=== PATIENT | male | born 1995 | race Caucasian/White ===

== ENCOUNTER 2016-12-30 16:34 | Emergency (ER) | payer MEDICAID ==
[2016-12-30 16:55] VITALS: TEMP 102.4
[2016-12-30] MEDS ORDERED: IBUPROFEN 600 MG TAB PO STA (18:28)
[2016-12-30] MEDS ORDERED: IPRATROPIUM-ALBUTEROL 3 ML NEB INHALATION STA (18:28)
[2016-12-30] MEDS ORDERED: SODIUM CHLORIDE 0.9% 1,000 ML IV STA (18:28)
[2016-12-30] MEDS ORDERED: ONDANSETRON 4 MG/2 ML VIAL IVP STA (18:28)
[2016-12-30] MEDS ORDERED: ACETAMINOPHEN TAB 500 MG TAB PO STA (18:29)
--- NOTE | 2016-12-30 18:38 | ED ---
Nausea/Vomiting/Diarrhea HPI - General Chief complaint: Nausea/Vomiting/Diarrhea Stated complaint: Abd Pain Time Seen by Provider: 12/30/16 18:24 Source: patient, RN notes reviewed Mode of arrival: ambulatory Limitations: no limitations - History of Present Illness Initial comments: 21 yo male presents to the ER with cc of abdominal pain, fever, cough, nausea and vomiting. Patient has been sick since . Patient went to urgent care was started on antibiotics for this. He started to develop the abdominal pain and nausea vomiting basically were concerned. Patient states he had a cough cold runny nose with this. Patient missed or sore throat. He denies any ear pain or neck pain. He states he just does not seem to be getting better so he was concerned.Patient denies any recent shortness of breath, chest pain, back pain, numbness or tingling, dysuria or hematuria, constipation or diarrhea , headaches or visual changes, or any other current symptoms. - Related Data Home Medications Medication Instructions Recorded Confirmed Albuterol Sulfate [Proair Hfa] 2 puff INHALATION RT-Q4H PRN 12/30/16 12/30/16 Azithromycin [Zithromax Z-pack] See Taper PO DAILY 12/30/16 12/30/16 predniSONE See Taper PO DAILY 12/30/16 12/30/16 Previous Rx's Medication Instructions Recorded Albuterol Inhaler [Ventolin Hfa 1 - 2 puff INHALATION Q4-6H PRN #1 12/30/16 Inhaler] inhaler Levofloxacin [Levaquin] 750 mg PO DAILY #7 tab 12/30/16 Allergies Allergy/AdvReac Type Severity Reaction Status Date / Time No Known Allergies Allergy Verified 12/30/16 18:29 Review of Systems ROS Statement: Those systems with pertinent positive or pertinent negative responses have been documented in the HPI. ROS Other: All systems not noted in ROS Statement are negative. Past Medical History Past Medical History: No Reported History History of Any Multi-Drug Resistant Organisms: None Reported Past Surgical History: Tonsillectomy Past Psychological History: No Psychological Hx Reported Smoking Status: Never smoker Past Alcohol Use History: Occasional Past Drug Use History: None Reported General Exam - General Exam Comments Initial Comments: General exam: Alert, active, comfortable in no apparent distress Head: Normocephalic Eyes: Normal reaction of pupils, equal size, normal range of extraocular motion Ears: normal external ear canals, pink tympanic membranes with normal cone of light Nose: clear with pink turbinates Throat: no erythema or exudates with normal sized tonsils Neck: no masses, no nuchal rigidity Chest: no chest wall deformity Lungs: equal air entry with no crackles or wheeze CVS: S1 and S2 normal with no audible mumurs, regular rhythm Abdomen: no hepatosplenomegaly, normal bowel sounds, no guarding or rigidity Spine: no scoliosis or deformity Skin: no rashes Neurological: No focal deficits, tone is normal in all 4 extremities Limitations: no limitations Course Vital Signs 12/30/16 12/30/16 12/30/16 16:52 19:20 19:24 Temperature 102.4 F H Pulse Rate 114 H 78 84 Respiratory 20 Rate Blood Pressure 135/76 O2 Sat by Pulse 94 L Oximetry Medical Decision Making - Medical Decision Making 21-year-old male presents to the emergency department with a chief complaint of fever and abdominal pain nausea vomiting. This time the patient appears in right lower lobe pneumonia. This time we discussed using the new antibiotic as prescribed as well as the inhaler. We discussed return parameters all patient' s questions. they're in agreement with plan. They will be discharged. - Lab Data Result diagrams: 12/30/16 18:53 12/30/16 18:53 Lab Results 12/30/16 12/30/16 Range/Units 18:53 18:53 WBC 6.3 (3.8-10.6) k/uL RBC 4.87 (4.30-5.90) m/uL Hgb 13.6 (13.0-17.5) gm/dL Hct 41.7 (39.0-53.0) % MCV 85.5 (80.0-100.0) fL MCH 27.9 (25.0-35.0) pg MCHC 32.7 (31.0-37.0) g/dL RDW 13.6 (11.5-15.5) % Plt Count 197 (150-450) k/uL Neutrophils % 89 % Lymphocytes % 5 % Monocytes % 5 % Eosinophils % 0 % Basophils % 0 % Neutrophils # 5.6 (1.3-7.7) k/uL Lymphocytes # 0.3 L (1.0-4.8) k/uL Monocytes # 0.3 (0-1.0) k/uL Eosinophils # 0.0 (0-0.7) k/uL Basophils # 0.0 (0-0.2) k/uL Sodium 134 L (137-145) mmol/L Potassium 3.8 (3.5-5.1) mmol/L Chloride 97 L (98-107) mmol/L Carbon Dioxide 24 (22-30) mmol/L Anion Gap 13 mmol/L BUN 12 (9-20) mg/dL Creatinine 0.89 (0.66-1.25) mg/dL Est GFR (MDRD) Af Amer >60 (>60 ml/min/1.73 sqM) Est GFR (MDRD) Non-Af >60 (>60 ml/min/1.73 sqM) Glucose 94 (74-99) mg/dL Calcium 8.4 (8.4-10.2) mg/dL Total Bilirubin 0.6 (0.2-1.3) mg/dL AST 33 (17-59) U/L ALT 40 (21-72) U/L Alkaline Phosphatase 66 (38-126) U/L Total Protein 6.9 (6.3-8.2) g/dL Albumin 3.9 (3.5-5.0) g/dL Amylase 52 (30-110) U/L Lipase 47 (23-300) U/L - Radiology Data Radiology results: report reviewed, image reviewed Disposition Clinical Impression: Right lower lobe pneumonia Disposition: HOME SELF-CARE Condition: Stable Instructions: Bacterial Pneumonia (ED) Additional Instructions: Please use medication as discussed. Please follow up with family doctor if symptoms have not improved over the next two days. Please return to the emergency room if your symptoms increase or worsen or for any other concerns. Prescriptions: Albuterol Inhaler [Ventolin Hfa Inhaler] 1 - 2 puff INHALATION Q4-6H PRN #1 inhaler PRN Reason: Cough Levofloxacin [Levaquin] 750 mg PO DAILY #7 tab Referrals: Marvin Norman DO [Primary Care Provider] - 1-2 days Time of Disposition: 19:49
[2016-12-30 19:15] LABS: Basophils % (A) 0 %; CH 28.2; CHCM 33.1; Eosinophils % (A) 0 %; HCT 41.7 % (39.0-53.0); HGB 13.6 gm/dL (13.0-17.5); Luc # (Auto) 0.07; Luc % (Auto) 1; Lymphocytes # (A) 0.3 k/uL (1.0-4.8); Lymphocytes % (A) 5 %; MCH 27.9 pg (25.0-35.0); MCHC 32.7 g/dL (31.0-37.0); MCV 85.5 fL (80.0-100.0); Mean Platelet Volume 6.9; Monocytes # (A) 0.3 k/uL (0-1.0); Monocytes % (A) 5 %; Neutrophils # (A) 5.6 k/uL (1.3-7.7); Neutrophils % (A) 89 %; RBC 4.87 m/uL (4.30-5.90); RDW 13.6 % (11.5-15.5); WBC 6.3 k/uL (3.8-10.6); WBC (Perox) 6.37
--- NOTE | 2016-12-30 19:19 | XR ---
EXAMINATION TYPE: XR chest 2V DATE OF EXAM: 12/30/2016 7:06 PM COMPARISON: NONE HISTORY: Cough TECHNIQUE: Frontal and lateral views of the chest are obtained. FINDINGS: Heart and mediastinum are normal. There is a 5 cm rounded area of consolidation in the rig ht lower lobe. The other lung costello are clear. There are no hilar masses. There is no pleural effusi on. Bony thorax is intact. IMPRESSION: Consolidation in the right lower lobe consistent with bronchopneumonia.
[2016-12-30 19:23] LABS: ALT 40 U/L (21-72); AST 33 U/L (17-59); Alkaline Phosphatase 66 U/L (38-126); Amylase 52 U/L (30-110); Anion Gap 13 mmol/L; Blood Urea Nitrogen 12 mg/dL (9-20); Calcium 8.4 mg/dL (8.4-10.2); Carbon Dioxide 24 mmol/L (22-30); Chloride 97 mmol/L (98-107); Glucose 94 mg/dL (74-99); Non-African American GFR(MDRD) >60 (>60 ml/min/1.73 sqM); Potassium 3.8 mmol/L (3.5-5.1); Sodium 134 mmol/L (137-145); Total Bilirubin 0.6 mg/dL (0.2-1.3); Total Protein 6.9 g/dL (6.3-8.2)
[2016-12-30 19:59] VITALS: BP 123/61; PULSE 101; RESP 16
== END 2016-12-30 20:07 | disposition home or self-care (01) ==
LOC: EC 16:34
DX: J18.9 Pneumonia, unspecified organism (principal); Z79.52 Long term (current) use of systemic steroids
CPT/HCPCS: 99284; 96374; 96361; 36415; 94640; 80053; 82150; 83605; 83690; 85025; 87040; 71020; J2405

== ENCOUNTER 2017-01-01 14:58 | Inpatient (IN) | payer MEDICAID ==
[2017-01-01] MEDS ORDERED: IPRATROPIUM-ALBUTEROL 3 ML NEB INHALATION STA (15:28)
[2017-01-01] MEDS ORDERED: ACETAMINOPHEN IV (For NPO) 1,000 MG in EMPTY BAG 1 BAG IVPB STA (15:28)
[2017-01-01] MEDS ORDERED: KETOROLAC 30 MG/ML 1 ML VIAL IVP STA (15:28)
[2017-01-01] MEDS ORDERED: LEVOFLOXACIN 750MG-D5W PMX 750 MG in DEXTROSE/WATER 1 150ML.BAG IVPB STA (15:28)
[2017-01-01] MEDS ORDERED: PIPERACILLIN-TAZOBACTAM 3.375 GM in DEXTROSE/WATER 1 50ML.BAG IVPB STA (15:28)
[2017-01-01] MEDS ORDERED: SODIUM CHLORIDE 0.9% 2,000 ML IV STA (15:29)
[2017-01-01] MEDS ORDERED: SODIUM CHLORIDE 0.9% 1,000 ML IV STA ×2 (15:29→16:50)
--- NOTE | 2017-01-01 15:52 | ED ---
General Adult HPI - General Chief complaint: Shortness of Breath Stated complaint: Cough/SOB Time Seen by Provider: 01/01/17 15:12 Source: patient, RN notes reviewed, old records reviewed Mode of arrival: ambulatory Limitations: no limitations - History of Present Illness Initial comments: This is a 21-year-old male to the ER for evaluation of fevers, shortness of breath cough and congestion. Patient has no specific medical history takes no medications no fevers. Family history no known sick contacts. Patient's eyes for stable pneumonia, initially diagnosed here in the emergency room, getting progressively worse. He also saw 7 doctor 2 days ago and is also continue to get worse and that basically taking all medications as prescribed, feeling weak , diaphoretic and sweating, no specific nausea vomiting or chest pain. Mild shortness of breath - Related Data Previous Rx's Medication Instructions Recorded Levofloxacin [Levaquin] 750 mg PO DAILY #7 tab 12/30/16 Albuterol Inhaler [Ventolin Hfa 1 - 2 puff INHALATION QID #0 01/04/17 Inhaler] Budesonide-Formot 160-4.5 Mcg 2 puff INHALATION BID #1 inhaler 01/04/17 [Symbicort 160-4.5 Mcg Inhaler] predniSONE 10 mg PO DIRECTED #30 tab 01/04/17 Fluconazole [Diflucan] 100 mg PO DAILY #7 tab 01/05/17 Allergies Allergy/AdvReac Type Severity Reaction Status Date / Time No Known Allergies Allergy Verified 01/01/17 15:53 Review of Systems ROS Statement: Those systems with pertinent positive or pertinent negative responses have been documented in the HPI. ROS Other: All systems not noted in ROS Statement are negative. Past Medical History Past Medical History: No Reported History History of Any Multi-Drug Resistant Organisms: None Reported Past Surgical History: Tonsillectomy Past Psychological History: No Psychological Hx Reported Smoking Status: Never smoker Past Alcohol Use History: Occasional Past Drug Use History: None Reported - Past Family History Mother Family Medical History: No Reported History Father Family Medical History: Diabetes Mellitus General Exam Limitations: no limitations General appearance: alert, in no apparent distress Head exam: Present: atraumatic, normocephalic, normal inspection Eye exam: Present: normal appearance, PERRL, EOMI. Absent: scleral icterus, conjunctival injection, periorbital swelling ENT exam: Present: normal exam, mucous membranes moist Neck exam: Present: normal inspection. Absent: tenderness, meningismus, lymphadenopathy Respiratory exam: Present: normal lung sounds bilaterally. Absent: respiratory distress, wheezes, rales, rhonchi, stridor Cardiovascular Exam: Present: regular rate, normal rhythm, normal heart sounds. Absent: systolic murmur, diastolic murmur, rubs, gallop, clicks GI/Abdominal exam: Present: soft, normal bowel sounds. Absent: distended, tenderness, guarding, rebound, rigid Extremities exam: Present: normal inspection, full ROM, normal capillary refill. Absent: tenderness, pedal edema, joint swelling, calf tenderness Back exam: Present: normal inspection Neurological exam: Present: alert, oriented X3, CN II-XII intact Psychiatric exam: Present: normal affect, normal mood Skin exam: Present: warm, dry, intact, normal color. Absent: rash Course Vital Signs 01/01/17 01/01/17 01/01/17 14:59 15:54 16:08 Temperature 98.7 F Pulse Rate 95 96 Respiratory 18 24 Rate Blood Pressure 126/58 O2 Sat by Pulse 97 Oximetry 01/01/17 16:13 Temperature Pulse Rate 96 Respiratory Rate Blood Pressure O2 Sat by Pulse Oximetry Medical Decision Making - Medical Decision Making 21 no the ER for evaluation pneumonia with failed outpatient treatment, patient will be increased and broad-spectrum antibiotics, admitted to the hospital for both cardio pulmonary monitoring as well as organic status. Patient be admitted with IV fluid and IV antibiotics, - Lab Data Result diagrams: 01/05/17 06:27 01/05/17 06:27 Lab Results 01/01/17 01/01/17 01/01/17 Range/Units 15:50 15:50 15:50 WBC 11.5 H (3.8-10.6) k/uL RBC 4.56 (4.30-5.90) m/uL Hgb 12.9 L (13.0-17.5) gm/dL Hct 38.4 L (39.0-53.0) % MCV 84.3 (80.0-100.0) fL MCH 28.2 (25.0-35.0) pg MCHC 33.5 (31.0-37.0) g/dL RDW 13.6 (11.5-15.5) % Plt Count 167 (150-450) k/uL Neutrophils % 92 % Lymphocytes % 3 % Monocytes % 3 % Eosinophils % 0 % Basophils % 0 % Neutrophils # 10.6 H (1.3-7.7) k/uL Lymphocytes # 0.3 L (1.0-4.8) k/uL Monocytes # 0.3 (0-1.0) k/uL Eosinophils # 0.0 (0-0.7) k/uL Basophils # 0.0 (0-0.2) k/uL PT (9.0-12.0) sec INR (<1.1) APTT (22.0-30.0) sec Sodium 130 L (137-145) mmol/L Potassium 4.0 (3.5-5.1) mmol/L Chloride 99 (98-107) mmol/L Carbon Dioxide 22 (22-30) mmol/L Anion Gap 9 mmol/L BUN 8 L (9-20) mg/dL Creatinine 0.67 (0.66-1.25) mg/dL Est GFR (MDRD) Af Amer >60 (>60 ml/min/1.73 sqM) Est GFR (MDRD) Non-Af >60 (>60 ml/min/1.73 sqM) Glucose 102 H (74-99) mg/dL Estimated Ave Glu mg/dL mg/dL Hemoglobin A1c (4.2-6.1) % Plasma Lactic Acid Sage 1.1 (0.7-2.0) mmol/L Calcium 8.2 L (8.4-10.2) mg/dL Phosphorus (2.5-4.5) mg/dL Magnesium (1.6-2.3) mg/dL Total Bilirubin 0.7 (0.2-1.3) mg/dL AST 49 (17-59) U/L ALT 33 (21-72) U/L Alkaline Phosphatase 47 (38-126) U/L Total Protein 6.2 L (6.3-8.2) g/dL Albumin 3.3 L (3.5-5.0) g/dL 01/01/17 01/01/17 01/01/17 Range/Units 15:50 15:50 15:50 WBC (3.8-10.6) k/uL RBC (4.30-5.90) m/uL Hgb (13.0-17.5) gm/dL Hct (39.0-53.0) % MCV (80.0-100.0) fL MCH (25.0-35.0) pg MCHC (31.0-37.0) g/dL RDW (11.5-15.5) % Plt Count (150-450) k/uL Neutrophils % % Lymphocytes % % Monocytes % % Eosinophils % % Basophils % % Neutrophils # (1.3-7.7) k/uL Lymphocytes # (1.0-4.8) k/uL Monocytes # (0-1.0) k/uL Eosinophils # (0-0.7) k/uL Basophils # (0-0.2) k/uL PT 11.9 (9.0-12.0) sec INR 1.2 (<1.1) APTT 26.8 (22.0-30.0) sec Sodium (137-145) mmol/L Potassium (3.5-5.1) mmol/L Chloride (98-107) mmol/L Carbon Dioxide (22-30) mmol/L Anion Gap mmol/L BUN (9-20) mg/dL Creatinine (0.66-1.25) mg/dL Est GFR (MDRD) Af Amer (>60 ml/min/1.73 sqM) Est GFR (MDRD) Non-Af (>60 ml/min/1.73 sqM) Glucose (74-99) mg/dL Estimated Ave Glu mg/dL 117 mg/dL Hemoglobin A1c 5.7 (4.2-6.1) % Plasma Lactic Acid Sage (0.7-2.0) mmol/L Calcium (8.4-10.2) mg/dL Phosphorus 2.6 (2.5-4.5) mg/dL Magnesium 1.9 (1.6-2.3) mg/dL Total Bilirubin (0.2-1.3) mg/dL AST (17-59) U/L ALT (21-72) U/L Alkaline Phosphatase (38-126) U/L Total Protein (6.3-8.2) g/dL Albumin (3.5-5.0) g/dL - Radiology Data Radiology results: report reviewed (Chest x-ray shows worsening of pneumonia), image reviewed Critical Care Time Critical Care Time: Yes Total Critical Care Time: 31 Disposition Clinical Impression: Right lower lobe pneumonia, Failure of outpatient treatment Disposition: ADMITTED IP TO THIS [facility] Condition: Fair
[2017-01-01 16:01] LABS: Basophils % (A) 0 %; CHCM 33.3; Eosinophils % (A) 0 %; HCT 38.4 % (39.0-53.0); HDW 2.54; HGB 12.9 gm/dL (13.0-17.5); Luc # (Auto) 0.17; Luc % (Auto) 2; Lymphocytes # (A) 0.3 k/uL (1.0-4.8); Lymphocytes % (A) 3 %; MCH 28.2 pg (25.0-35.0); MCHC 33.5 g/dL (31.0-37.0); MCV 84.3 fL (80.0-100.0); Mean Platelet Volume 7.1; Monocytes # (A) 0.3 k/uL (0-1.0); Monocytes % (A) 3 %; Neutrophils # (A) 10.6 k/uL (1.3-7.7); Neutrophils % (A) 92 %; RBC 4.56 m/uL (4.30-5.90); RDW 13.6 % (11.5-15.5); WBC 11.5 k/uL (3.8-10.6); WBC (Perox) 12.13
[2017-01-01 16:09] LABS: INR 1.2 (<1.1); Partial Thromboplastin Time 26.8 sec (22.0-30.0); Prothrombin Time 11.9 sec (9.0-12.0)
[2017-01-01 16:12] LABS: ALT 33 U/L (21-72); AST 49 U/L (17-59); Alkaline Phosphatase 47 U/L (38-126); Anion Gap 9 mmol/L; Blood Urea Nitrogen 8 mg/dL (9-20); Calcium 8.2 mg/dL (8.4-10.2); Carbon Dioxide 22 mmol/L (22-30); Chloride 99 mmol/L (98-107); Glucose 102 mg/dL (74-99); Non-African American GFR(MDRD) >60 (>60 ml/min/1.73 sqM); Sodium 130 mmol/L (137-145); Total Bilirubin 0.7 mg/dL (0.2-1.3); Total Protein 6.2 g/dL (6.3-8.2)
--- NOTE | 2017-01-01 16:27 | XR ---
EXAMINATION TYPE: XR chest 2V DATE OF EXAM: 01/01/2017 COMPARISON: Chest x-ray December 30, 2016. HISTORY: Pneumonia with persistent cough congestion and fever. TECHNIQUE: Frontal and lateral views of the chest are obtained. FINDINGS: There is worsening right lower lobe airspace opacity confirmed on 2 views. There is worse gloria right upper lobe airspace opacity. Left lung remains clear. No pleural effusion or pneumothorax is seen bilaterally. The cardiac silhouette size is within normal limits. The osseous structures ar e intact. IMPRESSION: Worsening right upper and lower lobe pneumonic infiltrates.
[2017-01-01] MEDS ORDERED: PNEUMONIA PROTOCOL UTILIZED 1 EACH MISC PO PRN (16:48)
[2017-01-01] MEDS ORDERED: IPRATROPIUM-ALBUTEROL 3 ML NEB INHALATION PRN (16:48)
[2017-01-01] MEDS ORDERED: SODIUM CHLORIDE 0.9% 500 ML IV STA (16:50)
[2017-01-01] MEDS ORDERED: IV VANCOMYCIN PER PHARMACY 1 EACH MISC MISCELLANE PRN (16:50)
[2017-01-01] MEDS ORDERED: IBUPROFEN 600 MG TAB PO PRN (16:50)
[2017-01-01] MEDS ORDERED: ACETAMINOPHEN TAB 325 MG TAB PO PRN (16:51)
[2017-01-01 17:17] LABS: Magnesium 1.9 mg/dL (1.6-2.3); Phosphorous 2.6 mg/dL (2.5-4.5)
[2017-01-01] MEDS: SODIUM CHLORIDE 0.9% 1,000 ML IV SCH (18:46)
[2017-01-01 19:17] LABS: Appearance,Urine Clear (Clear); Bacteria,Urine Rare /hpf; Bilirubin,Urine Negative (Negative); Glucose,Urine (UA) Negative (Negative); Ketones,Urine 2+ (Negative); Leukocyte Esterase,Urine Negative (Negative); Nitrite,Urine Negative (Negative); Particle Count 5381; Protein,Urine Trace (Negative); Specific Gravity,Urine 1.004 (1.001-1.035); UA Billing (MACRO vs. MICRO) MICRO; Urobilinogen,Urine <2.0 mg/dL (<2.0); WBC,Urine 4 /hpf (0-5)
[2017-01-01] MEDS ORDERED: VANCOMYCIN 2,500 MG in SODIUM CHLORIDE 0.9% 500 ML IVPB ONE (20:00)
[2017-01-02] MEDS: PIPERACILLIN-TAZOBACTAM 3.375 GM in DEXTROSE/WATER 1 50ML.BAG IVPB SCH ×2 (01:07→08:28)
[2017-01-02] MEDS: SODIUM CHLORIDE 0.9% 1,000 ML IV SCH ×2 (05:07→16:06)
[2017-01-02] MEDS: VANCOMYCIN 2,000 MG in SODIUM CHLORIDE 0.9% 500 ML IVPB SCH ×3 (05:07→21:35)
--- NOTE | 2017-01-02 07:06 | XR ---
EXAMINATION TYPE: XR chest 2V DATE OF EXAM: 01/02/2017 COMPARISON: 01/01/2017 HISTORY: Pneumonia TECHNIQUE: Frontal and lateral views of the chest are obtained. FINDINGS: Airspace consolidation right lower lobe appears slightly larger in size. Right upper lobe i nfiltrate is stable in overall size. The left lung is clear. Cardiomediastinal silhouette is stable. Suspect paratracheal adenopathy. IMPRESSION: Findings compatible with mildly progressive pneumonia.
[2017-01-02] MEDS ORDERED: LEVALBUTEROL NEB 1.25 MG/3 ML AMP INHALATION SCH (13:00)
[2017-01-02] MEDS: IPRATROPIUM-ALBUTEROL 3 ML NEB INHALATION SCH ×2 (15:54→19:18)
[2017-01-02] MEDS ORDERED: HYDROcodone/APAP 5-325MG 1 EACH TAB PO PRN (16:25)
[2017-01-02] MEDS ORDERED: TEMAZEPAM 15 MG CAP PO PRN (16:25)
--- NOTE | 2017-01-02 16:44 | P.CNPUL ---
History of Present Illness Consult date: 01/02/17 Reason for consult: pneumonia History of present illness: 21-year-old male patient, obese, with previous history of tonsillectomy, otherwise healthy, who started having symptoms of abdominal pain, fever, cough, nausea vomiting. He initially presented to his primary care physician where he was diagnosed having a pneumonia. He was given a course of Z-Kirk and a prednisone burst taper. The patient did not have any significant improvement and following that he presented to the burst department on 12/30/2016 with the same symptoms. He had a chest x-ray that showed a right lower lobe pneumonia. He had no change in mental status. His hemoglobin was at 15.6. Her white cell count was at 6.3. Renal function test was within normal limits. He was however febrile with a temperature 102.4. The rest of the hemodynamics were stable and the pulse ox was 94% on room air. The patient was discharged home on Levaquin. He took 3 days' worth of Levaquin however his condition was getting worse. For that reason he came into the hospital and his chest x-ray showed worsening of the right lower lobe pneumonia development of a right upper lobe infiltrate. The patient was hospitalized. He was started on a combination of Zosyn, Levaquin and vancomycin. I was asked to avoid this patient for above-mentioned symptoms. Despite his extensive bibasilar lobe pneumonia, the patient is not having any significant respiratory distress. He is laying comfortably in bed. He has a history of childhood asthma. He has minimal bronchospasm wheezing. Some limited chest tightness. Unable to bring up much sputum. 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 And he has no exposure to sick contacts. No childhood history. No previous bouts of pneumonias. No immunosuppression. No previous history of chronic lung disease or disorder. He has developed some oropharyngeal thrush. Hemodynamically remains stable. No skin rashes. No arthritis. No aspiration. Review of Systems All systems: negative Constitutional: Denies chills, Denies fever Eyes: denies blurred vision, denies pain Ears, nose, mouth and throat: Denies headache, Denies sore throat Cardiovascular: Reports shortness of breath, Denies chest pain Respiratory: Reports cough, Reports dyspnea, Reports wheezing Gastrointestinal: Denies abdominal pain, Denies diarrhea, Denies nausea, Denies vomiting Musculoskeletal: Denies myalgias Integumentary: Denies pruritus, Denies rash Neurological: Denies numbness, Denies weakness Psychiatric: Denies anxiety, Denies depression Endocrine: Denies fatigue, Denies weight change Past Medical History Past Medical History: No Reported History Additional Past Medical History / Comment(s): Obesity, childhood asthma History of Any Multi-Drug Resistant Organisms: None Reported Past Surgical History: Tonsillectomy Past Psychological History: No Psychological Hx Reported Smoking Status: Never smoker Past Alcohol Use History: Occasional Past Drug Use History: None Reported - Past Family History Mother Family Medical History: No Reported History Father Family Medical History: Diabetes Mellitus Medications and Allergies Home Medications Medication Instructions Recorded Confirmed Type Azithromycin [Zithromax Z-pack] See Taper PO DAILY 12/30/16 01/01/17 History predniSONE See Taper PO DAILY 12/30/16 01/01/17 History Albuterol Inhaler [Ventolin Hfa 1 - 2 puff INHALATION RT-Q4H PRN 01/01/17 History Inhaler] Allergies Allergy/AdvReac Type Severity Reaction Status Date / Time No Known Allergies Allergy Verified 01/01/17 15:53 Physical Exam Vitals: Vital Signs Temp Pulse Pulse Resp BP BP Pulse Ox 01/02/17 16:04 106 H 01/02/17 15:55 99 91 L 01/02/17 14:00 100.4 F H 90 105 H 18 146/67 93 L 01/02/17 13:47 90 01/02/17 08:00 108 H 18 01/02/17 07:53 92 01/02/17 07:43 88 01/02/17 07:00 100.2 F H 108 H 18 159/79 94 L 01/02/17 02:14 97.4 F L 76 16 129/64 96 01/01/17 20:00 97.1 F L 90 18 119/65 93 L 01/01/17 17:47 98.2 F 93 16 111/72 100 01/01/17 17:34 99.2 F 92 20 135/66 95 Intake and Output 01/02/17 01/02/17 01/02/17 06:59 14:59 22:59 Intake Total 1650 Balance 1650 Intake: Intake, IV Titration 1400 Amount Piperacillin-Tazobactam 3 100 .375 gm In Dextrose/Water 1 50ml.bag @ 12.5 mls/hr IVPB Q8HR [facility] Rx#: [id number] Sodium Chloride 0.9% 1, 800 000 ml @ 100 mls/hr IV . Q10H [facility] Rx#:[id number] Vancomycin 2,000 mg In 500 Sodium Chloride 0.9% 500 ml @ 167 mls/hr IVPB Q8H [facility] Rx#:[id number] Oral 250 Other: # Voids 2 2 # Bowel Movements 1 Head exam was generally normal. There was no scleral icterus or corneal arcus. Mucous membranes were moist.Neck was supple and without jugular venous distension, thyromegaly, or carotid bruits. Carotids were easily palpable bilaterally. There was no adenopathy. The patient has significant crowding of the posterior oropharynx and has a Mallampati class IV. Patient has also oropharyngeal thrush. Lungs sounds are diminished bilaterally along with that there is some few scattered expiratory wheezes. Some crackles in the right lung base.Cardiac exam revealed the PMI to be normally situated and sized. The rhythm was regular and no extrasystoles were noted during several minutes of auscultation. The first and second heart sounds were normal and physiologic splitting of the second heart sound was noted. There were no murmurs, rubs, clicks, or gallops.Abdominal exam revealed normal bowel sounds. The abdomen was soft, non-tender, and without masses, organomegaly, or appreciable enlargement of the abdominal aorta.Examination of the extremities revealed easily palpable radial, femoral and pedal pulses. There was no cyanosis, clubbing or edema. Neurologically the patient is intact awake and alert. Results - Laboratory Findings CBC and BMP: 01/01/17 15:50 01/01/17 15:50 PT/INR, D-dimer PT 11.9 sec (9.0-12.0) 01/01/17 15:50 INR 1.2 (<1.1) 01/01/17 15:50 Abnormal lab findings: Abnormal Labs 01/01/17 01/01/17 01/01/17 15:50 15:50 19:10 WBC 11.5 H Hgb 12.9 L Hct 38.4 L Neutrophils # 10.6 H Lymphocytes # 0.3 L Sodium 130 L BUN 8 L Glucose 102 H Calcium 8.2 L Total Protein 6.2 L Albumin 3.3 L Urine Protein Trace H Urine Ketones 2+ H Urine Blood Trace H Urine Bacteria Rare H - Diagnostic Findings Chest x-ray: image reviewed Assessment and Plan Plan: Impression 1 acute bilobar pneumonia with significant consolidation of the right lower lobe interval progression with a past 72 hours. The patient has worsening in the right lower lobe consolidation and he has developed also right upper lobe pulmonary infiltrate. He has failed outpatient antibiotic treatment. He was initially given Z-Kirk and following that he was started on Levaquin which he took for a total of 3 days. 2 childhood bronchial asthma with a component of an acute asthma exacerbation secondary to pneumonia 3 respirator distress secondary to above 4 fever secondary to above, T-max his 100.4. The patient remains hemodynamically stable at this point 5 obesity 6 mild hypoxemia on room air with a pulse ox of 93%. Currently on no oxygen. 7 oropharyngeal thrush Plan Obtain sputum Gram stain and culture. Obtain blood culture. Obtain Legionella urine antigen. Cover this patient with a broad-spectrum antibiotics including a combination of Merrem, vancomycin and Levaquin. Add Diflucan for oropharyngeal thrush. 100 mg of Diflucan will be given orally emanating basis for the next 5 days. Add IV Solu Medrol 60 mg IV push every 6 hours. Start the patient on DuoNeb nebulized treatments 4 times a day [id number]. Daily chest x-rays. We'll continue to follow make further recommendations based on his overall progress.
[2017-01-02] MEDS: FLUCONAZOLE 100 MG TAB PO SCH (17:15)
[2017-01-02] MEDS: methylPREDNISolone SOD SUCCI 125 MG/2 ML VIAL IV SCH (17:16)
[2017-01-02] MEDS: MEROPENEM 2 GM in SODIUM CHLORIDE 0.9% 100 ML IVPB SCH (17:27)
[2017-01-02] MEDS: LEVOFLOXACIN 750MG-D5W PMX 750 MG in DEXTROSE/WATER 1 150ML.BAG IVPB SCH (18:58)
--- NOTE | 2017-01-02 20:37 | HP ---
DATE OF ADMISSION: 01/01/2017 CHIEF COMPLAINT: Shortness of breath, cough, nausea and vomiting and diarrhea. HISTORY OF PRESENT ILLNESS: This 21-year-old gentleman with no past medical history of multiple medical problems except history of asthma during childhood, history of tonsillectomy, being followed by Dr. Marvin Norman in the outpatient setting, not feeling well over the past several days. The patient having increasing cough and congestion and sputum and the patient was having nausea and vomiting, abdominal discomfort and some diarrhea. The patient was seen in the ER a few days ago and diagnosed with pneumonia, because of lack of improvement the patient came to [facility] and admitted to the hospital for further evaluation and treatment. IV antibiotics initiated. There is no history of chest pain, palpitations, no history of headache, loss of consciousness or seizures. Patient had some mucoid sputum at this time. PAST MEDICAL HISTORY: History of asthma, history of tonsillectomy. Medications are: 1. Zithromax Z-Kirk daily. 2. Ventolin HFA 2 puffs q.4 p.r.n. 3. Prednisone taper. 4. Levaquin 750 daily. ALLERGIES: None. FAMILY HISTORY: No history of heart disease or strokes in the family. 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 No history of smoking. No history of alcohol intake. REVIEW OF SYSTEMS: HEENT: No diminishing hearing. No diminished vision. CARDIOVASCULAR: No angina or palpitations. RESPIRATORY: No cough or hemoptysis. GI: As mentioned earlier. : No dysuria or hematuria. CENTRAL NERVOUS SYSTEM: No numbness or weakness. ALLERGY/IMMUNOLOGY: No asthma or hayfever. MUSCULOSKELETAL: As mentioned earlier. HEMATOLOGY/ONCOLOGY: No history of anemia. Dermatology: Negative. ENDOCRINE: No history of diabetes mellitus or hypothyroidism. CONSTITUTIONAL: As mentioned earlier. RHEUMATOLOGY: Negative. PSYCHIATRY: As mentioned earlier. PHYSICAL EXAMINATION: The patient is alert and oriented times three. VITAL SIGNS: Pulse is 105, blood pressure is 140/67, respirations 18, temperature 101.4, pulse ox 98% on room air. HEENT: Conjunctivae normal. Oral mucosa moist. NECK: No jugular venous distention. No carotid bruit. No lymph node enlargement. CARDIOVASCULAR: S1. S2 muffled. No S3, no S4. RESPIRATORY: Breath sounds diminished at the bases. Bilateral scattered rhonchi. Expiratory wheezing and crackles also heard. No bronchial breath sounds. No diminishing percussion. ABDOMEN: Soft, nontender. No mass palpable. Legs: No edema. No swelling. CENTRAL NERVOUS SYSTEM: Higher functions as mentioned earlier. Moves all 4 limbs. No focal motor or sensory deficits. LYMPHATICS: No lymph nodes palpable in the neck, axillae or groin. SKIN: No ulcer, rash or bleeding. LABS: WBC 11.9, hemoglobin 12.9, sodium 130. Albumin 3.3. C. dif negative. ASSESSMENT: 1. Acute right lower lobe pneumonia, possibly community acquired with failure of outpatient treatment with systemic inflammatory response syndrome. 2. Increased WBC. 3. Anemia, normocytic anemia of chronic anemia of possibly nutrition. 4. Hyponatremia, mild. 5. Increased random blood sugar. 6. Hypoalbuminemia with mild to moderate protein calorie malnutrition. 7. Obesity body mass index 45.6. 8. History of bronchial asthma in childhood. 9. History of tonsillectomy. 10. FULL CODE. RECOMMENDATIONS AND DISCUSSION: This 21-year-old gentleman who presented with multiple complex medical issues, we will monitor the patient closely, continue the current medications, continue symptomatic treatment. Otherwise, at this time I recommend broad-spectrum IV antibiotics, bronchodilators, IV steroids. Would also recommend follow up with Dr. Balbuena from the pulmonary point of view. Obtain cultures. Repeat labs, Legionella antigen. Further recommendations to follow.
[2017-01-02 20:42] LABS: Glucose,Whole Blood 123 mg/dL (75-99)
[2017-01-02] MEDS: INSULIN LISPRO (humaLOG) 300 UNIT/3 ML VIAL SQ SCH ×2 (21:03→21:42)
[2017-01-02] MEDS: HEPARIN SODIUM,PORCINE 5,000 UNIT/ML 1 ML VIAL SQ SCH (21:43)
[2017-01-03] MEDS: methylPREDNISolone SOD SUCCI 125 MG/2 ML VIAL IV SCH ×4 (00:46→18:12)
[2017-01-03] MEDS: MEROPENEM 2 GM in SODIUM CHLORIDE 0.9% 100 ML IVPB SCH ×3 (00:49→16:10)
[2017-01-03] MEDS ORDERED: VANCOMYCIN TROUGH DUE 1 EACH MISC MISCELLANE ONE (03:00)
[2017-01-03 03:44] LABS: Basophils % (A) 0 %; CH 27.6; Eosinophils % (A) 0 %; HCT 34.8 % (39.0-53.0); HDW 2.68; HGB 11.5 gm/dL (13.0-17.5); Luc # (Auto) 0.13; Luc % (Auto) 3; Lymphocytes # (A) 0.4 k/uL (1.0-4.8); Lymphocytes % (A) 8 %; MCH 27.8 pg (25.0-35.0); MCHC 33.1 g/dL (31.0-37.0); Mean Platelet Volume 7.1; Monocytes # (A) 0.1 k/uL (0-1.0); Monocytes % (A) 3 %; Neutrophils # (A) 3.8 k/uL (1.3-7.7); Neutrophils % (A) 86 %; RBC 4.15 m/uL (4.30-5.90); RDW 13.7 % (11.5-15.5); WBC 4.4 k/uL (3.8-10.6); WBC (Perox) 4.61
[2017-01-03 04:00] LABS: Anion Gap 10 mmol/L; Blood Urea Nitrogen 6 mg/dL (9-20); Calcium 8.1 mg/dL (8.4-10.2); Carbon Dioxide 24 mmol/L (22-30); Chloride 108 mmol/L (98-107); Glucose 112 mg/dL (74-99); Non-African American GFR(MDRD) >60 (>60 ml/min/1.73 sqM); Potassium 4.3 mmol/L (3.5-5.1); Sodium 142 mmol/L (137-145)
[2017-01-03] MEDS: VANCOMYCIN 2,000 MG in SODIUM CHLORIDE 0.9% 500 ML IVPB SCH (04:18)
[2017-01-03 06:55] LABS: Glucose,Whole Blood 117 mg/dL (75-99)
[2017-01-03] MEDS: INSULIN LISPRO (humaLOG) 300 UNIT/3 ML VIAL SQ SCH ×4 (07:02→21:14)
[2017-01-03] MEDS: HEPARIN SODIUM,PORCINE 5,000 UNIT/ML 1 ML VIAL SQ SCH ×2 (07:21→21:14)
[2017-01-03] MEDS: PANTOPRAZOLE 40 MG TABLET PO SCH (07:21)
[2017-01-03] MEDS: FLUCONAZOLE 100 MG TAB PO SCH (07:21)
--- NOTE | 2017-01-03 08:25 | XR ---
EXAMINATION TYPE: XR chest 1V DATE OF EXAM: 01/03/2017 CLINICAL HISTORY: Difficulty breathing and pneumonia progress study. TECHNIQUE: Single AP portable frontal view of the chest is obtained. COMPARISON: Chest x-ray from one day earlier FINDINGS: There is persistent right upper and lower airspace opacities. Left lung remains clear. Car diac silhouette size is stable and within normal limits. Osseous structures are intact. No pleural ef fusion or pneumothorax is seen bilaterally. IMPRESSION: Persistent multilobar right-sided pneumonia, no new infiltrate. No significant interval nanci huggins.
[2017-01-03] MEDS: IPRATROPIUM-ALBUTEROL 3 ML NEB INHALATION SCH ×4 (09:19→19:47)
--- NOTE | 2017-01-03 10:03 | CDI ---
In responding to this query, please exercise your independent professional judgment. The [facility] Coding Staff and Clinical Documentation Specialists appreciate your assistance in clarifying documentation, maintaining compliance with coding guidelines, accurately documenting patients condition and capturing severity of illness. The fact that a question is asked does not imply that any particular answer is desired or expected. Communication forms are a method of clarifying documentation and are not made part of the Legal Health Record. Thank you in advance for your clarification. Last Revision, September 2015 Reyna Ramsey [address] [place] [address] Documentation Clarification Form Date: 01/03/2017 9:31:00 AM From: Deepthi Preston Admit Date: 01/01/2017 4:48:00 PM Patient Name: Abhishek Kaiser Visit Number: [id number] Discharge Date: Dr. Shantelle Balbuena Asthma is documented in the progress note on 01/02/17, as childhood bronchial asthma with a component of an acute asthma exacerbation secondary to pneumonia. Patient history/risk factors: Childhood bronchial asthma, Clinical Indicators: ER for evaluation of fevers, shortness of breath cough and congestion. He had prior treatment for pneumonia. Vital signs on admission: 126/58 95 18 98.7 97 % RA Chest x-ray: Worsening right upper and lower lobe pneumonic infiltrates. Other Clinical Indicators: Lungs sounds are diminished bilaterally scattered expiratory wheezes. Some crackles in the right lung base. Treatment: Albuterol Duoneb's Monitor O2 Sat's, Levaquin IV Merrem IV Solu-Medrol IV (taper) Vancomycin IV Blood culture (pending) Sputum culture (pending) In your professional opinion, can you please further specify the following, if known? Acute exacerbation of Asthma: Severity Mild intermittent Mild persistent Moderate persistent Severe persistent Other, please specify Unable to determine Please document in your progress notes in order to capture severity of illness and risk of mortality. Include clinical findings that support your diagnosis. FYI: Press F11 to launch patient chart. Place X here if this finding has no clinical significance, is not applicable or if you are not able to provide any additional documentation. CANDICED
[2017-01-03 11:57] LABS: Hemoglobin A1C 5.7 % (4.2-6.1)
[2017-01-03] MEDS: VANCOMYCIN 2,250 MG in SODIUM CHLORIDE 0.9% 500 ML IVPB SCH ×2 (12:06→19:54)
[2017-01-03 12:08] LABS: Glucose,Whole Blood 164 mg/dL (75-99)
[2017-01-03 16:57] LABS: Glucose,Whole Blood 124 mg/dL (75-99)
--- NOTE | 2017-01-03 17:02 | P.PN ---
Subjective Principal diagnosis: Head exam was generally normal. There was no scleral icterus or corneal arcus. Mucous membranes were moist.Neck was supple and without jugular venous distension, thyromegaly, or carotid bruits. Carotids were easily palpable bilaterally. There was no adenopathy. The patient has significant crowding of the posterior oropharynx and has a Mallampati class IV. Patient has also oropharyngeal thrush. Lungs sounds are diminished bilaterally along with that there is some few scattered expiratory wheezes. Some crackles in the right lung base.Cardiac exam revealed the PMI to be normally situated and sized. The rhythm was regular and no extrasystoles were noted during several minutes of auscultation. The first and second heart sounds were normal and physiologic splitting of the second heart sound was noted. There were no murmurs, rubs, clicks, or gallops.Abdominal exam revealed normal bowel sounds. The abdomen was soft, non-tender, and without masses, organomegaly, or appreciable enlargement of the abdominal aorta.Examination of the extremities revealed easily palpable radial, femoral and pedal pulses. There was no cyanosis, clubbing or edema. Neurologically the patient is intact awake and alert. 21-year-old male patient, obese, with previous history of tonsillectomy, otherwise healthy, who started having symptoms of abdominal pain, fever, cough, nausea vomiting. He initially presented to his primary care physician where he was diagnosed having a pneumonia. He was given a course of Z-Kirk and a prednisone burst taper. The patient did not have any significant improvement and following that he presented to the burst department on 12/30/2016 with the same symptoms. He had a chest x-ray that showed a right lower lobe pneumonia. He had no change in mental status. His hemoglobin was at 15.6. Her white cell count was at 6.3. Renal function test was within normal limits. He was however febrile with a temperature 102.4. The rest of the hemodynamics were stable and the pulse ox was 94% on room air. The patient was discharged home on Levaquin. He took 3 days' worth of Levaquin however his condition was getting worse. For that reason he came into the hospital and his chest x-ray showed worsening of the right lower lobe pneumonia development of a right upper lobe infiltrate. The patient was hospitalized. He was started on a combination of Zosyn, Levaquin and vancomycin. I was asked to avoid this patient for above-mentioned symptoms. Despite his extensive bibasilar lobe pneumonia, the patient is not having any significant respiratory distress. He is laying comfortably in bed. He has a history of childhood asthma. He has minimal bronchospasm wheezing. Some limited chest tightness. Unable to bring up much sputum. 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 And he has no exposure to sick contacts. No childhood history. No previous bouts of pneumonias. No immunosuppression. No previous history of chronic lung disease or disorder. He has developed some oropharyngeal thrush. Hemodynamically remains stable. No skin rashes. No arthritis. No aspiration. On 01/03/2017 the patient is being seen in follow-up. He is improved and he is less short of breath compared to yesterday. The chest x-ray still showing extensive consolidation of the right lower lobe with some minimal pulmonary infiltration of the right upper lobe. He was also being treated for an acute asthma exacerbation secondary to underlying pneumonia. He was started on systemic steroids and he is feeling better. Afebrile. Cough has subsided. No significant sputum production. No hemoptysis. No pleurisy. No significant hemodynamic instability. The patient remains on a combination of Levaquin, meropenem and vancomycin. The sputum sample showed Tara albicans and the patient is currently on Diflucan for oropharyngeal thrush. Objective - Vital Signs Vital signs: Vital Signs Temp 98.0 F 01/03/17 14:57 Pulse 97 01/03/17 14:57 Resp 16 01/03/17 14:57 BP 152/77 01/03/17 14:57 Pulse Ox 93 L 01/03/17 14:57 Intake & Output 01/02/17 01/03/17 01/03/17 18:59 06:59 18:59 Intake Total 800 Balance 800 Intake: IV 800 Sodium Chloride 0.9% 1, 800 000 ml @ 100 mls/hr IV . Q10H [facility] Rx#:[id number] Other: # Voids 2 2 2 # Bowel Movements 1 - Labs CBC & Chem 7: 01/03/17 03:04 01/03/17 03:04 Labs: Abnormal Lab Results - Last 24 Hours (Table) 01/02/17 01/03/17 01/03/17 Range/Units 20:41 03:04 03:04 RBC 4.15 L (4.30-5.90) m/uL Hgb 11.5 L (13.0-17.5) gm/dL Hct 34.8 L (39.0-53.0) % Lymphocytes # 0.4 L (1.0-4.8) k/uL Chloride 108 H (98-107) mmol/L BUN 6 L (9-20) mg/dL Glucose 112 H (74-99) mg/dL POC Glucose (mg/dL) 123 H (75-99) mg/dL Calcium 8.1 L (8.4-10.2) mg/dL 01/03/17 01/03/17 01/03/17 Range/Units 06:53 11:57 16:49 RBC (4.30-5.90) m/uL Hgb (13.0-17.5) gm/dL Hct (39.0-53.0) % Lymphocytes # (1.0-4.8) k/uL Chloride (98-107) mmol/L BUN (9-20) mg/dL Glucose (74-99) mg/dL POC Glucose (mg/dL) 117 H 164 H 124 H (75-99) mg/dL Calcium (8.4-10.2) mg/dL Microbiology - Last 24 Hours (Table) 01/01/17 21:45 Gram Stain - Preliminary Sputum Sputum Culture - Preliminary Tara albicans 01/01/17 18:30 Urine Culture - Preliminary Urine,Clean Catch 01/01/17 15:50 Blood Culture - Preliminary Blood No Growth after 24 hours Assessment and Plan Plan: Impression 1 acute bilobar pneumonia with significant consolidation of the right lower lobe interval progression with a past 72 hours. The patient has worsening in the right lower lobe consolidation and he has developed also right upper lobe pulmonary infiltrate. He has failed outpatient antibiotic treatment. He was initially given Z-Kirk and following that he was started on Levaquin which he took for a total of 3 days. 2 acute asthma exacerbation secondary to above 3 respirator distress secondary to above 4 fever secondary to above, T-max his 100.4. The patient remains hemodynamically stable at this point 5 obesity 6 mild hypoxemia on room air with a pulse ox of 93%. Currently on no oxygen. 7 oropharyngeal thrush 8 childhood bronchial asthma Plan Chest x-ray stable. Clinically however improved. Continue same antibiotic coverage. Continue systemic steroids. Continue oral Diflucan. Ablate the patient PT pedal chest x-ray in the morning. We'll continue to follow.
[2017-01-03] MEDS: LEVOFLOXACIN 750MG-D5W PMX 750 MG in DEXTROSE/WATER 1 150ML.BAG IVPB SCH (17:23)
[2017-01-03 20:49] LABS: Glucose,Whole Blood 139 mg/dL (75-99)
[2017-01-04] MEDS: MEROPENEM 2 GM in SODIUM CHLORIDE 0.9% 100 ML IVPB SCH ×4 (00:21→23:10)
[2017-01-04] MEDS: methylPREDNISolone SOD SUCCI 125 MG/2 ML VIAL IV SCH ×5 (00:22→23:14)
[2017-01-04] MEDS: MELATONIN 5 MG TABLET PO PRN ×2 (01:23→21:48)
[2017-01-04] MEDS: VANCOMYCIN 2,250 MG in SODIUM CHLORIDE 0.9% 500 ML IVPB SCH ×3 (03:33→20:27)
[2017-01-04 05:56] LABS: Mycoplasma IgG Antibody (EIA) 0.38 INDEX (<=0.90); Mycoplasma IgM Antibody 0.13 INDEX (<=0.90)
[2017-01-04 07:20] LABS: Basophils % (A) 0 %; CH 27.4; CHCM 31.9; Eosinophils % (A) 0 %; HCT 35.4 % (39.0-53.0); HDW 2.58; HGB 11.4 gm/dL (13.0-17.5); Luc # (Auto) 0.18; Luc % (Auto) 3; Lymphocytes # (A) 0.7 k/uL (1.0-4.8); Lymphocytes % (A) 11 %; MCH 27.8 pg (25.0-35.0); MCHC 32.3 g/dL (31.0-37.0); MCV 86.3 fL (80.0-100.0); Mean Platelet Volume 7.4; Monocytes # (A) 0.4 k/uL (0-1.0); Monocytes % (A) 5 %; Neutrophils # (A) 5.4 k/uL (1.3-7.7); Neutrophils % (A) 80 %; RBC 4.09 m/uL (4.30-5.90); RDW 13.9 % (11.5-15.5); WBC 6.7 k/uL (3.8-10.6); WBC (Perox) 7.19
[2017-01-04] MEDS: IPRATROPIUM-ALBUTEROL 3 ML NEB INHALATION SCH ×4 (07:21→19:39)
[2017-01-04 07:25] LABS: Glucose,Whole Blood 119 mg/dL (75-99)
[2017-01-04 07:36] LABS: Anion Gap 10 mmol/L; Blood Urea Nitrogen 12 mg/dL (9-20); Calcium 7.7 mg/dL (8.4-10.2); Carbon Dioxide 24 mmol/L (22-30); Chloride 110 mmol/L (98-107); Glucose 122 mg/dL (74-99); Non-African American GFR(MDRD) >60 (>60 ml/min/1.73 sqM); Sodium 144 mmol/L (137-145)
[2017-01-04] MEDS: PANTOPRAZOLE 40 MG TABLET PO SCH (08:14)
[2017-01-04] MEDS: FLUCONAZOLE 100 MG TAB PO SCH (08:14)
[2017-01-04] MEDS: HEPARIN SODIUM,PORCINE 5,000 UNIT/ML 1 ML VIAL SQ SCH ×2 (08:14→20:27)
[2017-01-04] MEDS: INSULIN LISPRO (humaLOG) 300 UNIT/3 ML VIAL SQ SCH ×4 (08:15→20:27)
--- NOTE | 2017-01-04 08:41 | XR ---
EXAMINATION TYPE: XR chest 1V DATE OF EXAM: 01/04/2017 HISTORY: pneumonia. REFERENCE: Previous study dated 01/03/2017. FINDINGS: There is persistent multifocal infiltrates on the right. Left lung is clear. Pleural spaces are clear. Heart size is normal. IMPRESSION: CONTINUING RIGHT-SIDED PNEUMONIA.
--- NOTE | 2017-01-04 10:16 | PN ---
DATE OF SERVICE: 01/03/2017 This 21-year-old gentleman who was admitted with acute pneumonia, possibly community acquired and failure of outpatient treatment is closely monitored. No chest pain or palpitations. No fever. Dr. Lorri Balbuena is following the patient closely. The patient had failure of outpatient treatment. On exam, alert and oriented x3. Pulse is 92, blood pressure 150/73, respirations 16, temperature 97.7, pulse ox 94% on room air. HEENT: Conjunctivae normal. NECK: No jugular venous distention. CARDIOVASCULAR: S1 and S2, muffled. RESPIRATORY: Breath sounds diminished at the bases. Scattered rhonchi and crackles. Abdomen is soft, nontender. LEGS: No edema, no swelling. NERVOUS SYSTEM: No focal deficit. Labs are at this time WBC 4.4, hemoglobin 11.5. Sodium 142, potassium 4.3. ASSESSMENT: 1. Acute right lower lobe pneumonia, possibly community acquired with failure of outpatient treatment with systemic inflammatory response syndrome. 2. Increased WBC. 3. Anemia, normocytic anemia, chronic anemia, possibly nutritional. 4. Hyponatremia. 5. Possible acute asthma exacerbation. 6. Increased random blood sugar. 7. Hypoalbuminemia with mild to moderate protein calorie malnutrition. 8. Obesity with body mass index of 45.6. 9. History of bronchial asthma, childhood. 10. History of tonsillectomy. 11. FULL CODE. RECOMMENDATIONS AND DISCUSSION: Recommend to continue current medications, continue symptomatic treatment. Continue with steroids. Continue with current medications, otherwise, continue with empiric antibiotics. Further recommendations to follow.
[2017-01-04 11:36] LABS: Glucose,Whole Blood 159 mg/dL (75-99)
[2017-01-04] MEDS ORDERED: LEVOFLOXACIN 750 MG TAB PO SCH (16:00)
[2017-01-04 17:15] LABS: Glucose,Whole Blood 123 mg/dL (75-99)
[2017-01-04] MEDS: ALPRAZolam 0.25 MG TAB PO PRN ×2 (17:47→22:44)
[2017-01-04 20:18] LABS: Glucose,Whole Blood 140 mg/dL (75-99)
--- NOTE | 2017-01-04 22:04 | PN ---
DATE OF SERVICE: 01/04/2017 This 21-year-old gentleman with a pneumonia with failure of outpatient treatment has been started on meropenem as well as vancomycin. No chest pain, no palpitations. No fever. On exam, alert, oriented x3. VITAL SIGNS: Pulse is 110, blood pressure 150/70, respirations 16, temperature 97.0, pulse ox 93% on room air. HEENT: Conjunctivae normal. NECK: No JVD. CARDIOVASCULAR: S1 and S2 muffled. LUNGS: Breath sounds diminished at the bases. Few scattered rhonchi. Wheezing and crackles. ABDOMEN: Soft, nontender. EXTREMITIES: Legs no edema. LABS: WBC 6.7, hemoglobin 11.4, glucose 122. ASSESSMENT: 1. Acute right lower lobe pneumonia, possibly community acquired with failure of outpatient treatment with systemic inflammatory response syndrome. 2. Increased weakness. 3. Anemia, normocytic anemia, possible malnutrition. 4. Hyponatremia. 5. Possible acute asthma acute exacerbation. 6. Increased random blood sugar. 7. Hypoalbuminemia with mild to moderate protein calorie malnutrition. 8. Obesity, body mass index 45.6. 9. History of bronchial asthma in childhood. 10. History of tonsillectomy. 11. FULL CODE. RECOMMENDATIONS: Continue current medications. Continue symptomatic treatment. Continue with bronchodilators and empiric antibiotics. Guarded prognosis. Further recommendations to follow.
[2017-01-05] MEDS: VANCOMYCIN 2,250 MG in SODIUM CHLORIDE 0.9% 500 ML IVPB SCH ×2 (03:43→11:53)
[2017-01-05] MEDS: ALPRAZolam 0.25 MG TAB PO PRN ×2 (03:51→08:48)
[2017-01-05] MEDS: methylPREDNISolone SOD SUCCI 125 MG/2 ML VIAL IV SCH ×2 (05:29→11:53)
[2017-01-05 06:56] LABS: Glucose,Whole Blood 114 mg/dL (75-99)
[2017-01-05 07:35] LABS: Basophils % (A) 0 %; CH 27.4; Eosinophils % (A) 0 %; HCT 34.1 % (39.0-53.0); HDW 2.55; Luc # (Auto) 0.24; Luc % (Auto) 3; Lymphocytes # (A) 0.7 k/uL (1.0-4.8); Lymphocytes % (A) 8 %; MCH 27.7 pg (25.0-35.0); MCHC 32.2 g/dL (31.0-37.0); Mean Platelet Volume 7.5; Monocytes # (A) 0.5 k/uL (0-1.0); Monocytes % (A) 6 %; Neutrophils # (A) 6.9 k/uL (1.3-7.7); Neutrophils % (A) 83 %; RBC 3.97 m/uL (4.30-5.90); RDW 13.9 % (11.5-15.5); WBC 8.3 k/uL (3.8-10.6); WBC (Perox) 8.83
[2017-01-05 07:45] LABS: Anion Gap 7 mmol/L; Blood Urea Nitrogen 14 mg/dL (9-20); Calcium 7.7 mg/dL (8.4-10.2); Carbon Dioxide 24 mmol/L (22-30); Chloride 110 mmol/L (98-107); Glucose 111 mg/dL (74-99); Non-African American GFR(MDRD) >60 (>60 ml/min/1.73 sqM); Sodium 141 mmol/L (137-145)
[2017-01-05] MEDS: IPRATROPIUM-ALBUTEROL 3 ML NEB INHALATION SCH ×2 (08:13→11:28)
--- NOTE | 2017-01-05 08:15 | XR ---
EXAMINATION TYPE: XR chest 1V DATE OF EXAM: 01/05/2017 CLINICAL HISTORY: Difficulty breathing and pneumonia progress study. TECHNIQUE: Single AP portable upright view of the chest is obtained. COMPARISON: Chest x-ray from one day earlier FINDINGS: There is persistent right upper lung and basilar opacities. Left lung remains clear. No pl eural effusion or pneumothorax is seen bilaterally. Cardiac silhouette size is stable and within norm al limits. Osseous structures are intact. IMPRESSION: Overall stable findings, persistent right upper and lower lobe infiltrates.
[2017-01-05] MEDS: PANTOPRAZOLE 40 MG TABLET PO SCH (08:48)
[2017-01-05] MEDS: HEPARIN SODIUM,PORCINE 5,000 UNIT/ML 1 ML VIAL SQ SCH (08:48)
[2017-01-05] MEDS: FLUCONAZOLE 100 MG TAB PO SCH (08:48)
[2017-01-05] MEDS: MEROPENEM 2 GM in SODIUM CHLORIDE 0.9% 100 ML IVPB SCH (08:48)
[2017-01-05] MEDS: INSULIN LISPRO (humaLOG) 300 UNIT/3 ML VIAL SQ SCH ×2 (08:50→12:47)
[2017-01-05 10:35] VITALS: RESP 15
[2017-01-05 10:36] VITALS: BP 133/84; TEMP 98.4
[2017-01-05 11:40] VITALS: PULSE 76
[2017-01-05 11:42] LABS: Glucose,Whole Blood 135 mg/dL (75-99)
--- NOTE | 2017-01-05 14:08 | P.PN ---
Subjective 21-year-old male patient, obese, with previous history of tonsillectomy, otherwise healthy, who started having symptoms of abdominal pain, fever, cough, nausea vomiting. He initially presented to his primary care physician where he was diagnosed having a pneumonia. He was given a course of Z-Kikr and a prednisone burst taper. The patient did not have any significant improvement and following that he presented to the burst department on 12/30/2016 with the same symptoms. He had a chest x-ray that showed a right lower lobe pneumonia. He had no change in mental status. His hemoglobin was at 15.6. Her white cell count was at 6.3. Renal function test was within normal limits. He was however febrile with a temperature 102.4. The rest of the hemodynamics were stable and the pulse ox was 94% on room air. The patient was discharged home on Levaquin. He took 3 days' worth of Levaquin however his condition was getting worse. For that reason he came into the hospital and his chest x-ray showed worsening of the right lower lobe pneumonia development of a right upper lobe infiltrate. The patient was hospitalized. He was started on a combination of Zosyn, Levaquin and vancomycin. I was asked to avoid this patient for above-mentioned symptoms. Despite his extensive bibasilar lobe pneumonia, the patient is not having any significant respiratory distress. He is laying comfortably in bed. He has a history of childhood asthma. He has minimal bronchospasm wheezing. Some limited chest tightness. Unable to bring up much sputum. 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 And he has no exposure to sick contacts. No childhood history. No previous bouts of pneumonias. No immunosuppression. No previous history of chronic lung disease or disorder. He has developed some oropharyngeal thrush. Hemodynamically remains stable. No skin rashes. No arthritis. No aspiration. On 01/03/2017 the patient is being seen in follow-up. He is improved and he is less short of breath compared to yesterday. The chest x-ray still showing extensive consolidation of the right lower lobe with some minimal pulmonary infiltration of the right upper lobe. He was also being treated for an acute asthma exacerbation secondary to underlying pneumonia. He was started on systemic steroids and he is feeling better. Afebrile. Cough has subsided. No significant sputum production. No hemoptysis. No pleurisy. No significant hemodynamic instability. The patient remains on a combination of Levaquin, meropenem and vancomycin. The sputum sample showed Tara albicans and the patient is currently on Diflucan for oropharyngeal thrush. On 01/05/2017 the patient is being seen in follow-up. The chest x-ray remains stable compared to yesterday however clinically the patient is improved and the patient is not having any fever chills or night sweats. At the same time there has been some improvement and x-ray findings compared to the original chest x- rays was done on 01/01/2017. No microbial diagnoses been established. The patient is less short of breath present. Pulse ox on room air is at 93%. He is very eager to leave the hospital knowing that he is feeling better. I'm okay with his discharge as long as has a very close follow-up on outpatient basis while being treated with oral antibiotics. Objective - Vital Signs Vital signs: Vital Signs Temp 98.4 F 01/05/17 07:00 Pulse 76 01/05/17 11:39 Resp 15 01/05/17 08:00 BP 133/84 01/05/17 07:00 Pulse Ox 93 L 01/05/17 07:00 Intake & Output 01/04/17 01/05/17 01/05/17 18:59 06:59 18:59 Intake Total 440 180 Balance 440 180 Intake: Oral 440 180 Other: Voiding Method Toilet Toilet # Voids 2 1 - Exam Head exam was generally normal. There was no scleral icterus or corneal arcus. Mucous membranes were moist.Neck was supple and without jugular venous distension, thyromegaly, or carotid bruits. Carotids were easily palpable bilaterally. There was no adenopathy. The patient has significant crowding of the posterior oropharynx and has a Mallampati class IV. Patient has also oropharyngeal thrush. Lungs sounds are diminished bilaterally along with that there is some few scattered expiratory wheezes. Some crackles in the right lung base.Cardiac exam revealed the PMI to be normally situated and sized. The rhythm was regular and no extrasystoles were noted during several minutes of auscultation. The first and second heart sounds were normal and physiologic splitting of the second heart sound was noted. There were no murmurs, rubs, clicks, or gallops.Abdominal exam revealed normal bowel sounds. The abdomen was soft, non-tender, and without masses, organomegaly, or appreciable enlargement of the abdominal aorta.Examination of the extremities revealed easily palpable radial, femoral and pedal pulses. There was no cyanosis, clubbing or edema. Neurologically the patient is intact awake and alert. - Labs CBC & Chem 7: 01/05/17 06:27 01/05/17 06:27 Labs: Abnormal Lab Results - Last 24 Hours (Table) 01/04/17 01/04/17 01/05/17 Range/Units 17:00 20:16 06:27 RBC 3.97 L (4.30-5.90) m/uL Hgb 11.0 L (13.0-17.5) gm/dL Hct 34.1 L (39.0-53.0) % Lymphocytes # 0.7 L (1.0-4.8) k/uL Chloride (98-107) mmol/L Creatinine (0.66-1.25) mg/dL Glucose (74-99) mg/dL POC Glucose (mg/dL) 123 H 140 H (75-99) mg/dL Calcium (8.4-10.2) mg/dL 01/05/17 01/05/17 01/05/17 Range/Units 06:27 06:51 11:39 RBC (4.30-5.90) m/uL Hgb (13.0-17.5) gm/dL Hct (39.0-53.0) % Lymphocytes # (1.0-4.8) k/uL Chloride 110 H (98-107) mmol/L Creatinine 0.61 L (0.66-1.25) mg/dL Glucose 111 H (74-99) mg/dL POC Glucose (mg/dL) 114 H 135 H (75-99) mg/dL Calcium 7.7 L (8.4-10.2) mg/dL Microbiology - Last 24 Hours (Table) 01/01/17 15:50 Blood Culture - Preliminary Blood No Growth after 72 hours Assessment and Plan Plan: Impression 1 acute bilobar pneumonia with significant consolidation of the right lower lobe interval progression on outpatient basis. Since the patient arrived to the hospital, he he was treated with triple antibiotic coverage. Clinically improved. Chest x-ray improved. There is some residual infiltration and there is a delay in the x-ray clearing compared to the overall clinical picture. 2 acute asthma exacerbation secondary to above, improved 3 respirator distress secondary to above 4 fever secondary to above, recovered 5 obesity 6 mild hypoxemia on room air with a pulse ox of 93%. Currently on no oxygen. 7 oropharyngeal thrush 8 childhood bronchial asthma Plan The patient can be discharged home on a combination of Levaquin 750 mg by mouth daily and Diflucan 100 mg by mouth daily for the next one week. The patient will be offered also prednisone burst taper. He will be seen in the office next week for a follow-up and repeat chest x-ray will be needed. He needs also to see his primary care physician as soon as possible following discharge for a dose monitor of his progress and outcome.
[2017-01-05] MEDS ORDERED: VANCOMYCIN TROUGH DUE 1 EACH MISC MISCELLANE ONE (19:15)
--- NOTE | 2017-01-06 15:04 | DS ---
DATE OF ADMISSION: 01/01/2017 DATE OF DISCHARGE: 01/05/2017 FINAL DIAGNOSES: 1. Acute right lower lobe pneumonia with possibly community acquired with failure of outpatient treatment with severe acute respiratory syndrome. 2. Increased WBC. 3. Anemia, normocytic anemia, possibly anemia of nutritional. 4. Hypernatremia. 5. Possible acute asthma, acute exacerbation. 6. Increased random blood sugar, possibly secondary to steroids. 7. Hypoalbuminemia with mild to moderate protein calorie malnutrition. 8. Obesity, body mass index of 45.6. 9. History of bronchial asthma in childhood. 10. History of tonsillectomy. 11. FULL CODE. DISCHARGE DISPOSITION: The patient will be discharged in stable condition with guarded prognosis. HISTORY OF PRESENT ILLNESS: This 21-year-old gentleman with a past medical history of multiple medical problems, including acute right lower lobe pneumonia with failure of outpatient treatment. The patient treated with broad-spectrum IV antibiotics. Dr. Balbuena saw the patient. Care was coordinated. The patient improved significantly. On exam, vitals are stable. CARDIOVASCULAR SYSTEM: S1, S2 muffled. A few scattered rhonchi and crackles. ABDOMEN: Soft and nontender. CENTRAL NERVOUS SYSTEM: No focal deficits. RESPIRATORY: A few rhonchi and crackles. DISCHARGE ADVICE AND MEDICATIONS: 1. Discharge diet is cardiac . 2. Activity limited until follow up. 3. Follow-up with Dr. Norman in two to three days. 4. Follow-up with Dr. Balbuena as advised. Medications will be: 1. Ventolin 1 to 2 puffs q.6. 2. Symbicort 160/4.5, 2 puffs b.i.d. 3. Diflucan 100 mg daily for one week. 4. Levaquin 750 mg daily for one week. 5. Prednisone taper that will be 40 mg daily for 3 days, 30 for 3 days, 20 for 3 days, 10 for 3 days and then discontinue.
== END 2017-01-05 14:56 | disposition home or self-care (01) | DRG 194 ==
LOC: EC 14:58 → 3SUR 16:48
PROVIDERS: ADMIT Hospitalist; ATTEND Hospitalist
DX: J18.9 Pneumonia, unspecified organism (principal); E44.0 Moderate protein-calorie malnutrition; B37.89 Other sites of candidiasis; B37.0 Candidal stomatitis; J45.901 Unspecified asthma with (acute) exacerbation; Z68.42 Body mass index [BMI] 45.0-49.9, adult; E87.1 Hypo-osmolality and hyponatremia; R09.02 Hypoxemia; T38.0X5A Adverse effect of glucocorticoids and synthetic analogues, initial encounter; R53.1 Weakness; R61 Generalized hyperhidrosis; R11.2 Nausea with vomiting, unspecified; R19.7 Diarrhea, unspecified; R73.09 Other abnormal glucose; D53.9 Nutritional anemia, unspecified; D72.829 Elevated white blood cell count, unspecified; E88.09 Other disorders of plasma-protein metabolism, not elsewhere classified; E66.9 Obesity, unspecified; Z83.3 Family history of diabetes mellitus; Z87.09 Personal history of other diseases of the respiratory system
CPT/HCPCS: 36415; 71010; 71020; 80048; 80053; 80202; 81001; 83036; 83605; 83735; 84100; 85025; 85610; 85730; 86738; 87040; 87070; 87086; 87205; 87324; 87449; 94640; 94760; 96365; 96375; 99291

== ENCOUNTER → 2017-01-18 | Outpatient (CLI) | payer MEDICAID ==
--- NOTE | 2017-01-19 06:38 | XR ---
EXAMINATION TYPE: XR chest 2V DATE OF EXAM: 01/18/2017 HISTORY: COUGH. REFERENCE: Previous study dated 01/05/2017. FINDINGS: There is a left right discrepancy on this study. The left lung is clear. There is unusual opacity developing on the right. I could not exclude early c avitation. The right upper lobe infiltrate has resolved. Pleural spaces are clear. The heart is not e nlarged. IMPRESSION: 1. LEFT RIGHT DISCREPANCY. 2. QUESTIONABLE CAVITATING LESION IN THE RIGHT LOWER LOBE. A CT SCAN OF THE CHEST WOULD BE SUGGESTED.
== END | disposition home or self-care (01) ==
LOC: RADXRYALE 14:56
PROVIDERS: ATTEND Family Medicine
DX: R05 Cough (principal)
CPT/HCPCS: 71020

== ENCOUNTER → 2017-01-28 | Outpatient (CLI) | payer MEDICAID ==
--- NOTE | 2017-01-28 19:59 | CT ---
EXAMINATION TYPE: CT chest wo con DATE OF EXAM: 01/28/2017 COMPARISON: NONE HISTORY: Follow up for pneumonia. CT DLP: 950.2 mGycm. Automated Exposure Control for Dose Reduction was Utilized. TECHNIQUE: CT scan of the thorax is performed without IV contrast. FINDINGS: There is a 3 cm emphysematous bulla in the right upper lobe. There are numerous emphysematous bulla w ith irregular thick sims in the right lower lobe. There is mild linear density in the right lower lo be. The left lung is clear. Heart and mediastinum are normal. There is no mediastinal adenopathy. The re are no hilar masses. IMPRESSION: There is multicentric cavitary infiltrate and atelectasis in the right lower lobe. There is thin-walled cavity or bulla in the right upper lobe as well. These findings are consistent with in flammatory disease in this relatively young patient. This is consistent with resolving multiple lung abscesses.
== END | disposition home or self-care (01) ==
LOC: RADCTMAIN 19:27
PROVIDERS: ATTEND Family Medicine
DX: J98.11 Atelectasis (principal); J18.9 Pneumonia, unspecified organism
CPT/HCPCS: 71250

== ENCOUNTER 2021-03-17 07:46 | Emergency (ER) | payer MEDICAID, OTHER ==
[2021-03-17 07:52] VITALS: RESP 18
--- NOTE | 2021-03-17 08:07 | ED ---
General Adult HPI - General Chief complaint: Shortness of Breath Stated complaint: cough, congestion Time Seen by Provider: 03/17/21 07:49 Source: patient, RN notes reviewed, old records reviewed Mode of arrival: ambulatory Limitations: no limitations - History of Present Illness Initial comments: 26-year-old male presenting with chief complaint of cough, congestion. Patient has been sick for approximately 8 days. His brother who he lives with had similar symptoms. He states that he has had a dry cough, nasal congestion, several episodes of vomiting and abdominal cramping. No measured fever. Patient is otherwise healthy with no chronic medical conditions. He is not vaccinated against coronavirus. - Related Data Previous Rx's Medication Instructions Recorded Levofloxacin [Levaquin] 750 mg PO DAILY #7 tab 12/30/16 Albuterol Inhaler (Mhu) [Ventolin 1 - 2 puff INHALATION QID #0 01/04/17 Hfa Inhaler (Mhu)] Budesonide-Formot 160-4.5 Mcg 2 puff INHALATION BID #1 inhaler 01/04/17 [Symbicort 160-4.5 Mcg Inhaler] predniSONE 10 mg PO DIRECTED #30 tab 01/04/17 Fluconazole [Diflucan] 100 mg PO DAILY #7 tab 01/05/17 Allergies Allergy/AdvReac Type Severity Reaction Status Date / Time No Known Allergies Allergy Verified 03/17/21 07:52 Review of Systems ROS Statement: Those systems with pertinent positive or pertinent negative responses have been documented in the HPI. ROS Other: All systems not noted in ROS Statement are negative. Past Medical History Past Medical History: No Reported History Additional Past Medical History / Comment(s): Obesity, childhood asthma History of Any Multi-Drug Resistant Organisms: None Reported Past Surgical History: Tonsillectomy Past Psychological History: No Psychological Hx Reported Smoking Status: Never smoker Past Alcohol Use History: Occasional Past Drug Use History: None Reported - Past Family History Mother Family Medical History: No Reported History Father Family Medical History: Diabetes Mellitus General Exam Limitations: no limitations General appearance: alert, in no apparent distress Head exam: Present: atraumatic, normocephalic Eye exam: Present: normal appearance, PERRL ENT exam: Present: mucous membranes dry Neck exam: Present: normal inspection. Absent: tenderness, meningismus Respiratory exam: Present: normal lung sounds bilaterally. Absent: respiratory distress, wheezes, rales, rhonchi Cardiovascular Exam: Present: regular rate, normal rhythm GI/Abdominal exam: Present: soft. Absent: distended, tenderness, guarding Extremities exam: Present: normal inspection, normal capillary refill. Absent: pedal edema Neurological exam: Present: alert, oriented X3, CN II-XII intact, normal gait. Absent: motor sensory deficit Psychiatric exam: Present: normal affect, normal mood Skin exam: Present: warm, dry, intact. Absent: cyanosis, diaphoretic Course Vital Signs 03/17/21 07:47 Temperature 98.5 F Pulse Rate 78 Respiratory 18 Rate Blood Pressure 125/74 O2 Sat by Pulse 98 Oximetry Medical Decision Making - Medical Decision Making 20 sexual male with cough congestion for 8 days. Lungs are clear, no hypoxia, vital signs are stable. He has not been vaccinated against coronavirus and does test positive in the emergency department. Chest x-ray is relatively clear with some peribronchial cuffing but no other large focal pneumonia. Patient is a candidate for monoclonal antibody therapy and is agreeable. 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 He is given strict return parameters and will quarantine. - Lab Data Lab Results 03/17/21 Range/Units 08:05 Coronavirus (PCR) Detected A (Not Detectd) Disposition Clinical Impression: COVID-19 Disposition: HOME SELF-CARE Condition: Good Instructions (If sedation given, give patient instructions): Coronavirus Disease 2019 (COVID-19) Is patient prescribed a controlled substance at d/c from ED?: No Referrals: Marvin Norman DO [Primary Care Provider] - 1-2 days Time of Disposition: 09:14
--- NOTE | 2021-03-17 08:34 | XR ---
EXAMINATION TYPE: XR chest 2V DATE OF EXAM: 03/17/2021 COMPARISON: 01/18/2017 HISTORY: 26-year-old male with cough and fever TECHNIQUE: PA and lateral views FINDINGS: The cardiomediastinal silhouette, aorta, and pulmonary vasculature are within normal limits. Mild per ibronchial cuffing centrally. Otherwise, lungs and pleural spaces are clear. IMPRESSION: Mild central peribronchial cuffing may reflect bronchitis or asthma. Otherwise, no acute cardiopulmon fredi process.
[2021-03-17] MEDS ORDERED: [UNRECOGNIZED DRUG - OTHER] IVPB ONE (10:00)
[2021-03-17] MEDS ORDERED: SODIUM CHLORIDE 0.9% 50 ML IVPB ONE (10:30)
[2021-03-17 10:40] VITALS: TEMP 99.6
[2021-03-17 11:32] VITALS: BP 139/86; PULSE 63
== END 2021-03-17 11:32 | disposition home or self-care (01) ==
LOC: EC 07:46
DX: U07.1 COVID-19 (principal); J45.909 Unspecified asthma, uncomplicated; E66.9 Obesity, unspecified; Z79.51 Long term (current) use of inhaled steroids; Z68.42 Body mass index [BMI] 45.0-49.9, adult
CPT/HCPCS: 71046; 87635; 96365; 99284